=== PATIENT | female | born 1955 ===

== ENCOUNTER 2020-01-12 05:44 | Emergency (ER) | payer SELFPAY ==
[~2020-01-12 05:44] MED LIST: AMIODARONE 150 MG/3 ML INJ IV ONE; CALCIUM CHLORIDE 1,000 MG/10 ML SYRINGE IV ONE; EPINEPHrine 1 MG/10 ML SYRINGE ONE; MAGNESIUM SULFATE 1 GM/2ML (4 MEQ/1ML) INJ ONE; SODIUM BICARB 8.4% 50 MEQ/50 ML SYRINGE IV ONE
--- NOTE | 2020-01-12 06:30 | Emergency Department Report ---
HPI - General Time Seen by Provider: 01/12/20 06:03 - HPI HPI: 64-year-old -Citizen Of [place] female presents to the emergency department via EMS from home in cardiac arrest. Apparently the patient called 911 herself secondary to some shortness of breath. When EMS arrived at her house the patient must have been unresponsive and there was no one to answer or open the door. It took about 10 to 15 minutes before they were able to get into the patient's home where they found her pulseless and unresponsive. A Luis airway was placed as well as an intraosseous line and ACLS protocol was started. They arrived to our emergency department after doing ACLS protocol for about 30 m inutes including 3 rounds of epinephrine, chest compressions, bag valve ventilation through the Luis airway, but the patient was in asystole the entire time. Unknown past medical history. It does not appear that the patient has been to this facility previously. ED Past Medical Hx - Past Medical History Previous Medical History?: Yes Hx Hypertension: Yes Hx Diabetes: Yes ED Review of Systems ROS: Stated complaint: CARDIAC ARREST Other details as noted in HPI Comment: Unobtainable due to pts medical conditions Physical Exam - Physical Exam Physical Exam: GENERAL: Patient is ill-appearing and unresponsive. HENT: Normocephalic. Atraumatic. EYES: Pupils are fixed and dilated. NECK: Supple. Trachea appears midline. CHEST/LUNGS: There are no spontaneous respirations. HEART/CARDIOVASCULAR: There are no spontaneous heart sounds. ABDOMEN: Abdomen is soft. There is no abdominal distention. SKIN: Skin is cool but dry. NEURO: Unresponsive. Does not withdraw to painful stimuli. Does not follow any commands. MUSCULOSKELETAL: There is no obvious deformity. There is no evidence of acute injury. No palpable femoral or radial pulses. ED Medical Decision Making - Medical Decision Making This patient presents to the emergency department in cardiac arrest. She had been receiving ACLS protocol for about 30 minutes prior to arrival. In the emergency department the patient had 5 rounds of ACLS. Patient was getting chest compressions, bag valve ventilation through a Luis airway. Initially she received epinephrine, sodium bicarbonate and calcium. The first 2 rhythm checks were PEA. On the third rhythm check, the patient was in V. fib. She received a 200 J shock and then was given 300 mg of amiodarone and 2 g of magnesium. On the fourth rhythm check, the patient was once again in V. fib and received another 200 J shock. On the fifth rhythm check, the patient was in asystole. Overall the patient had been pulseless and unresponsive for close to 1 hour. Patient has fixed and dilated pupils. There are no spontaneous heart or breath sounds. Time of was called at 5:57 AM. Critical Care Time: Yes Critical care time in (mins) excluding proc time.: 15 Critical care attestation.: If time is entered above; I have spent that time in minutes in the direct care of this critically ill patient, excluding procedure time. Critical care time is been on this patient and during her initial evaluation and supervision of ACLS protocol. Critical Care Time: 15 minutes ED Disposition Clinical Impression: Cardiac arrest, Acute respiratory failure Disposition: [id number] Is pt being admited?: No Referrals: PRIMARY CARE, [Primary Care Provider] - 3-5 Days Time of Disposition: 06:51
== END 2020-01-12 06:10 ==
LOC: ED 05:44
DX: I46.9 Cardiac arrest, cause unspecified (principal)
CPT/HCPCS: 92950; 99285; J0171; J0282; J3475